=== PATIENT | male | born 1975 | race American Indian/Alaskan Native ===

== ENCOUNTER 2017-02-23 08:03 | Emergency (ER) | payer OTHER, BC ==
[2017-02-23 08:07] VITALS: TEMP 99
[2017-02-23 08:08] VITALS: BMI 31.3
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
--- NOTE | 2017-02-23 10:34 | RAD ---
PROCEDURE: Left Knee Radiographs. HISTORY: Pain. COMPARISON: None. FINDINGS: BONES: Bone alignment and mineralization are normal. No acute fracture. JOINTS: There is mild degenerative osteoarthrosis in the medial compartment with mild reduced joint space and marginal spurring. JOINT EFFUSION: There is a moderate suprapatellar joint effusion. OTHER FINDINGS: None. IMPRESSION: No acute fracture or dislocation. 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 Moderate suprapatellar joint effusion.
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
--- NOTE | 2017-02-23 11:52 | CARD ---
APPROVED REPORT EKG Measurement Heart [id number] <Conclusion> Sinus bradycardia Possible Anterior infarct, age undetermined Abnormal ECG
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
[2017-02-23] MEDS ORDERED: Oxycodone/Acetaminophen 5/325 mg Tab PO ONE (14:28)
[2017-02-23 14:50] VITALS: BP 140/96; PULSE 78; RESP 20
[2017-02-23 16:50] VITALS: O2SAT 99
== END 2017-02-23 14:35 | disposition home or self-care (01) ==
LOC: H.ER 08:03
DX: M70.52 Other bursitis of knee, left knee (principal); F17.200 Nicotine dependence, unspecified, uncomplicated; E78.00 Pure hypercholesterolemia, unspecified
CPT/HCPCS: 72100; 72125; 73562; 93005; 96372; 99283; J1885